=== PATIENT | male | born 1960 | race Hispanic/Latino ===

== ENCOUNTER 2018-05-20 12:43 | Emergency (ER) | payer BC ==
[2018-05-20 13:35] LABS: Absolute Lymphocytes (CBC) 1.8 K/uL (0.7-4.9); Absolute Monocytes 0.4 K/uL (0.1-1.3); Basophils % 0.7 % (0-1.3); Eosinophils % 1.1 % (0-4.4); Hematocrit 41.7 % (39.6-49.0); Lymphocytes % 24.3 % (15.3-44.8); MPV 8.8 fL (7.6-11.3); Monocytes % 5.6 % (3.3-12.3); RBC Red Blood Cell Count 4.65 M/uL (4.33-5.43)
[2018-05-20 13:52] LABS: Potassium 4.1 mmol/L (3.5-5.1)
--- NOTE | 2018-05-20 14:16 | RAD REPORT ---
EXAM DESCRIPTION: CT - Thorax W/ Con CLINICAL HISTORY: Chest pain PAIN COMPARISON: No comparisons FINDINGS: The lungs are clear except for minimal atelectasis in both lung bases. No pleural thickeni ng or pleural effusion. No pneumothorax. No axillary, mediastinal or hilar adenopathy. No concerning bony finding. No gross upper abdominal finding. All CT scans are performed using dose optimization technique as appropriate and may include automated exposure control or mA/KV adjustment according to patient size. IMPRESSION: No acute intrathoracic abnormality detected.
[2018-05-20 14:41] LABS: Urine Blood NEGATIVE (NEG); Urine Glucose NEGATIVE (NEG); Urine Protein NEGATIVE (NEG); Urine Specific Gravity 1.015 (1.005-1.030); Urine pH 6.5 (5.0-7.0)
--- NOTE | 2018-05-20 14:58 | ER ---
Nurse's Notes [facility] Name: Gus Santiago Age: 57 yrs Sex: Male : 1960 Arrival Date: 05/20/2018 Time: 12:48 Bed 30 Private MD: None, None Diagnosis: Chest pain, unspecified Presentation: 05/20 13:05 Presenting complaint: Patient states: "chest pain since yesterday morning after I ca1 pulled a tree from it's roots, it felt like something tore inside". Presenting complaint:. Transition of care: patient was not received from another setting of care. Onset of symptoms was May 19, 2018. Risk Assessment: Do you want to hurt yourself or someone else? Patient reports no desire to harm self or others. Initial Sepsis Screen: Does the patient meet any 2 criteria? No. Patient's initial sepsis screen is negative. Does the patient have a suspected source of infection? No. Patient's initial sepsis screen is negative. Care prior to arrival: None. 13:05 Method Of Arrival: Ambulatory ca1 13:05 Acuity: ABEL 3 ca1 Triage Assessment: 13:10 General: Appears in no apparent distress. comfortable, Behavior is calm, cooperative, ca1 appropriate for age. Pain: Complains of pain in chest Pain does not radiate. Pain currently is 6 out of 10 on a pain scale. Pain began 1 day ago. Cardiovascular: Heart tones S1 S2 present Capillary refill < 3 seconds Patient's skin is warm and dry. Historical: - Allergies: 13:10 No Known Allergies; ca1 - Home Meds: 13:10 Atenolol Oral [Active]; Cholesterol Medication [Active]; ca1 - PMHx: 13:10 Hyperlipidemia; Hypertension; ca1 - PSHx: 13:10 Joint replacement; Knee Replacement L; Knee Surgeries R \\T\\ L; ca1 - Immunization history:: Flu vaccine is up to date. - Social history:: Smoking status: Patient/guardian denies using tobacco. - Ebola Screening: : No symptoms or risks identified at this time. Screenin:10 Abuse screen: Denies threats or abuse. Denies injuries from another. Nutritional ca1 screening: No deficits noted. Tuberculosis screening: No symptoms or risk factors identified. Fall Risk None identified. Assessment: 13:10 General: Appears in no apparent distress. comfortable, Behavior is calm, cooperative, ca1 appropriate for age. Pain: Complains of pain in chest Pain does not radiate. Pain currently is 6 out of 10 on a pain scale. Pain began 1 day ago. Neuro: Level of Consciousness is awake, alert, obeys commands, Oriented to person, place, time, situation. Cardiovascular: Heart tones S1 S2 present Capillary refill < 3 seconds Patient's skin is warm and dry. Rhythm is sinus bradycardia. Respiratory: Airway is patent Respiratory effort is even, unlabored, Respiratory pattern is regular, symmetrical, Breath sounds are clear bilaterally. GI: Abdomen is flat, non-distended, Bowel sounds present X 4 quads. Abd is soft and non tender X 4 quads. Patient currently denies nausea. : No signs and/or symptoms were reported regarding the genitourinary system. EENT: No signs and/or symptoms were reported regarding the EENT system. Derm: Skin is intact, is healthy with good turgor, Skin is pink, warm \\T\\ dry. Musculoskeletal: Circulation, motion, and sensation intact. Capillary refill < 3 seconds. 14:12 Reassessment: Patient appears in no apparent distress at this time. Patient and/or ca1 family updated on plan of care and expected duration. Pain level reassessed. Patient is alert, oriented x 3, equal unlabored respirations, skin warm/dry/pink. 15:05 Reassessment: Patient appears in no apparent distress at this time. Patient and/or ca1 family updated on plan of care and expected duration. Pain level reassessed. Patient is alert, oriented x 3, equal unlabored respirations, skin warm/dry/pink. Vital Signs: 13:10 BP 142 / 94; Pulse 55; Resp 20; Temp 98.8; Pulse Ox 97% on R/A; Weight 95.25 kg; Height ca1 5 ft. 11 in. (180.34 cm); Pain 6/10; 13:30 BP 128 / 85; Pulse 57; Resp 19; Pulse Ox 96% on R/A; ca1 14:15 BP 137 / 83; Pulse 84; Resp 19; Pulse Ox 98% on R/A; ca1 15:05 BP 139 / 89; Pulse 50; Resp 19; Pulse Ox 96% on R/A; ca1 13:10 Body Mass Index 29.29 (95.25 kg, 180.34 cm) ca1 ED Course: 12:48 Patient arrived in ED. mr 12:48 None, None is Private Physician. mr 13:05 Kristen Petty, RN is Primary Nurse. ca1 13:08 Triage completed. ca1 13:08 [facility] kb 13:08 Jose Alfredo Porras MD is Attending Physician. kb 13:10 Arm band placed on right wrist. EKG completed in triage. Results shown to MD. ca1 13:10 Patient has correct armband on for positive identification. Placed in gown. Bed in low ca1 position. Call light in reach. Side rails up X 1. cafeteria monitor on. Pulse ox on. NIBP on. Warm blanket given. 13:20 Radiology exam delayed due to lab results not completed at this time. (BUN/Creatinine). jj2 13:20 Inserted saline lock: 20 gauge in right antecubital area, using aseptic technique. ca1 Blood collected. 14:06 CT Chest W/ Con In Process Unspecified. EDMS 15:16 No provider procedures requiring assistance completed. IV discontinued, intact, ca1 bleeding controlled, No redness/swelling at site. Pressure dressing applied. Administered Medications: No medications were administered Outcome: 14:57 Discharge ordered by MD. kb 15:16 Discharged to home ambulatory. ca1 15:16 Condition: stable 15:16 Discharge instructions given to patient, Instructed on discharge instructions, follow up and referral plans. medication usage, Demonstrated understanding of instructions, follow-up care, medications, Prescriptions given X 2. 15:17 Patient left the ED. ca1 Signatures: Dispatcher [employer] EDMS Vivian Owens FNP-C FNP-Tato Ines Wynn Justin jj2 Kristen Petty, RN RN ca1 Corrections: (The following items were deleted from the chart) 14:11 13:32 Inserted saline lock: 20 gauge in right antecubital area, using aseptic ca1 technique. Blood collected. ca1 14:13 12:54 General: Appears in no apparent distress. comfortable, Behavior is calm, ca1 cooperative, appropriate for age, ca1 14:13 12:54 Pain: Complains of pain in chest Pain does not radiate. Pain currently is 6 out ca1 of 10 on a pain scale. Pain began 1 day ago. ca1 14:13 12:54 Neuro: Level of Consciousness is awake, alert, obeys commands, Oriented to ca1 person, place, time, situation, ca1 14: 12:54 Cardiovascular: Heart tones S1 S2 present Capillary refill < 3 seconds Patient's ca1 skin is warm and dry. Rhythm is sinus bradycardia ca1 14: 12:54 Respiratory: Airway is patent Respiratory effort is even, unlabored, Respiratory ca1 pattern is regular, symmetrical, Breath sounds are clear bilaterally. ca1 14: 12:54 GI: Abdomen is flat, non-distended, Bowel sounds present X 4 quads. Abd is soft ca1 and non tender X 4 quads. Patient currently denies nausea, ca1 14: 12:54 : No signs and/or symptoms were reported regarding the genitourinary system. ca1ca1 14: 12:54 EENT: No signs and/or symptoms were reported regarding the EENT system. ca1 ca1 14: 12:54 Derm: Skin is intact, is healthy with good turgor, Skin is pink, warm \\T\\ dry. ca1 ca1 14: 12:54 Musculoskeletal: Circulation, motion, and sensation intact. Capillary refill < 3 ca1 seconds, ca1 14: 12:54 Patient has correct armband on for positive identification. Placed in gown. Bed ca1 in low position. Call light in reach. Side rails up X 1. ca1 14: 12:54 cafeteria monitor on. Pulse ox on. NIBP on. ca1 ca1 14 12:54 Warm blanket given. ca1 ca1 14: 12:54 Abuse screen: Denies threats or abuse. Denies injuries from another. ca1 ca1 14: 12:54 Nutritional screening: No deficits noted. ca1 ca1 14: 12:54 Tuberculosis screening: No symptoms or risk factors identified. ca1 ca1 14: 12:54 Fall Risk None identified. ca1 ca1
--- NOTE | 2018-05-20 14:58 | EDPHYS ---
Physician Documentation [facility] Name: Gus Santiago Age: 57 yrs Sex: Male : 1960 Arrival Date: 05/20/2018 Time: 12:48 Bed 30 Private MD: None, None ED Physician Jose Alfredo Porras HPI: 05/20 15:07 This 57 yrs old Male presents to ER via Ambulatory with complaints of Chest kb discomfort. 15:07 The patient or guardian reports chest pain that is located primarily in the anterior kb chest wall, left breast. Onset: The symptoms/episode began/occurred yesterday. The pain does not radiate. Associated signs and symptoms: The patient has no apparent associated signs or symptoms. The chest pain is described as aching. Duration: The patient or guardian reports a single episode. Modifying factors: The symptoms are alleviated by nothing. the symptoms are aggravated by activity, deep breath, movement, palpation of area. Severity of pain: At its worst the pain was moderate in the emergency department the pain is unchanged. The patient has not experienced similar symptoms in the past. The patient has not recently seen a physician. Pt reports he was pulling up a tree and felt something tear in his chest. States the pain hasn't gone away since then and he was worried that he broke a rib. Pain with cough, movement, palpation and deep breathing. Denies shortness of breath. Historical: - Allergies: 13:10 No Known Allergies; ca1 - Home Meds: 13:10 Atenolol Oral [Active]; Cholesterol Medication [Active]; ca1 - PMHx: 13:10 Hyperlipidemia; Hypertension; ca1 - PSHx: 13:10 Joint replacement; Knee Replacement L; Knee Surgeries R \T\ L; ca1 - Immunization history:: Flu vaccine is up to date. - Social history:: Smoking status: Patient/guardian denies using tobacco. - Ebola Screening: : No symptoms or risks identified at this time. ROS: 15:07 Constitutional: Negative for fever, chills, and weight loss, ENT: Negative for injury, kb pain, and discharge, Neck: Negative for injury, pain, and swelling, Respiratory: Negative for shortness of breath, cough, wheezing, and pleuritic chest pain, Abdomen/GI: Negative for abdominal pain, nausea, vomiting, diarrhea, and constipation, Back: Negative for injury and pain, MS/Extremity: Negative for injury and deformity, Skin: Negative for injury, rash, and discoloration, Neuro: Negative for headache, weakness, numbness, tingling, and seizure. 15:07 Cardiovascular: Positive for chest pain, with cough, with movement, Negative for edema, orthopnea, palpitations, paroxysmal nocturnal dyspnea. Exam: 15:05 Constitutional: This is a well developed, well nourished patient who is awake, alert, kb and in no acute distress. Head/Face: Normocephalic, atraumatic. ENT: Nares patent. No nasal discharge, no septal abnormalities noted. Tympanic membranes are normal and external auditory canals are clear. Oropharynx with no redness, swelling, or masses, exudates, or evidence of obstruction, uvula midline. Mucous membranes moist. Neck: Trachea midline, no thyromegaly or masses palpated, and no cervical lymphadenopathy. Supple, full range of motion without nuchal rigidity, or vertebral point tenderness. No Meningismus. Cardiovascular: Regular rate and rhythm with a normal S1 and S2. No gallops, murmurs, or rubs. Normal PMI, no JVD. No pulse deficits. Respiratory: Lungs have equal breath sounds bilaterally, clear to auscultation and percussion. No rales, rhonchi or wheezes noted. No increased work of breathing, no retractions or nasal flaring. Abdomen/GI: Soft, non-tender, with normal bowel sounds. No distension or tympany. No guarding or rebound. No evidence of tenderness throughout. Skin: Warm, dry with normal turgor. Normal color with no rashes, no lesions, and no evidence of cellulitis. MS/ Extremity: Pulses equal, no cyanosis. Neurovascular intact. Full, normal range of motion. Neuro: Awake and alert, GCS 15, oriented to person, place, time, and situation. Cranial nerves II-XII grossly intact. Motor strength 5/5 in all extremities. Sensory grossly intact. Cerebellar exam normal. Normal gait. 15:05 Chest/axilla: Inspection: normal, Palpation: tenderness, that is moderate, of the left breast, that totally reproduces the patient's complaints. Vital Signs: 13:10 BP 142 / 94; Pulse 55; Resp 20; Temp 98.8; Pulse Ox 97% on R/A; Weight 95.25 kg; Height ca1 5 ft. 11 in. (180.34 cm); Pain 6/10; 13:30 BP 128 / 85; Pulse 57; Resp 19; Pulse Ox 96% on R/A; ca1 14:15 BP 137 / 83; Pulse 84; Resp 19; Pulse Ox 98% on R/A; ca1 15:05 BP 139 / 89; Pulse 50; Resp 19; Pulse Ox 96% on R/A; ca1 13:10 Body Mass Index 29.29 (95.25 kg, 180.34 cm) ca1 MDM: 13:08 Patient medically screened. kb 15:06 Data reviewed: vital signs, nurses notes. Data interpreted: Pulse oximetry: on room air kb is 98 %. Interpretation: normal. Counseling: I had a detailed discussion with the patient and/or guardian regarding: the historical points, exam findings, and any diagnostic results supporting the discharge/admit diagnosis, lab results, radiology results, the need for outpatient follow up, a family practitioner, to return to the emergency department if symptoms worsen or persist or if there are any questions or concerns that arise at home. 05/20 13:13 Order name: CBC with Diff; Complete Time: 13:58 kb 05/20 13:13 Order name: Basic Metabolic Panel; Complete Time: 13:58 kb 05/20 13:13 Order name: CT Chest W/ Con; Complete Time: 14:19 kb 05/20 13:13 Order name: EKG; Complete Time: 13:13 ca1 05/20 13:15 Order name: Troponin (emerg Dept Use Only); Complete Time: 13:58 kb 05/20 14:27 Order name: Urine Dipstick--Ancillary (enter results); Complete Time: 14:43 em1 05/20 13:13 Order name: IV Start; Complete Time: 13:46 kb 05/20 13:13 Order name: EKG - Nurse/Tech; Complete Time: 13:13 ca1 Administered Medications: No medications were administered Disposition: 05/21 06:36 Co-signature as Attending Physician, Jose Alfredo Porras MD I agree with the assessment and kdr plan of care. Disposition: 05/20/18 14:57 Discharged to Home. Impression: Chest pain, unspecified. - Condition is Stable. - Discharge Instructions: Chest Wall Pain, [id number]. - Prescriptions for Cyclobenzaprine 10 mg Oral Tablet - take 1 tablet by ORAL route every 8 hours As needed; 21 tablet. Diclofenac Sodium 75 mg Oral Tablet, Delayed Release (E.C.) - take 1 tablet by ORAL route 2 times per day As needed; 30 tablet. - Medication Reconciliation Form, Thank You Letter, Antibiotic Education, Prescription Opioid Use, Work release form form. - Follow up: Private Physician; When: 2 - 3 days; Reason: Recheck today's complaints, Continuance of care, Re-evaluation by your physician. Follow up: Emergency Department; When: As needed; Reason: Worsening of condition. Signatures: Dispatcher [employer] EDMS Vivian Owens, GREENHOUSE SPECIALIST-C GREENHOUSE SPECIALIST-Jose Alfredo Monge MD MD kdr Acob, Cheryl, RN RN ca1 Corrections: (The following items were deleted from the chart) 05/20 15:17 14:57 05/20/2018 14:57 Discharged to Home. Impression: Chest pain, unspecified. ca1 Condition is Stable. Forms are Medication Reconciliation Form, Thank You Letter, Antibiotic Education, Prescription Opioid Use. Follow up: Private Physician; When: 2 - 3 days; Reason: Recheck today's complaints, Continuance of care, Re-evaluation by your physician. Follow up: Emergency Department; When: As needed; Reason: Worsening of condition. kb
--- NOTE | 2018-05-20 15:45 | EKG ---
Test Date: 2018-05-20 Test Time: 13:01:01 Medical Practitioners: KRISTIE MEASUREMENT RESULTS: Intervals: Rate: 56 VA: 166 QRSD: 88 QT: 430 QTc: 414 Bellamy: P: 48 VA: 166 QRS: 16 T: 24 INTERPRETIVE STATEMENTS: Sinus bradycardia Otherwise normal ECG Compared to ECG 12/06/2010 09:27:01 Sinus rhythm no longer present Electronically Signed On 05-20-18 15:44:30 RAIL FILLER by Floyd Smith
== END 2018-05-20 15:17 | disposition home or self-care (01) ==
LOC: ER 12:43
DX: R07.9 Chest pain, unspecified (principal); E78.5 Hyperlipidemia, unspecified; I10 Essential (primary) hypertension
CPT/HCPCS: 36415; 71260; 80048; 81003; 84484; 85025; 93005; 99284; Q9967